=== PATIENT | female | born 1960 | race Caucasian/White ===

== ENCOUNTER 2023-04-16 14:01 | Emergency (ER) | payer BC ==
[2023-04-16 14:07] VITALS: TEMP 98.3; BMI 30.4
[2023-04-16 15:49] LABS: INR 0.98 (0.83-1.09); PROTHROMBIN TIME (PATIENT) 11.4 SEC (9.7-13.0)
[2023-04-16 15:52] LABS: ACTIVATED PTT 25.7 SECONDS (25.2-36.5)
[2023-04-16 16:56] LABS: BASO % 0.6 % (0-2.0); EOS % 0.8 % (0-4.5); HEMATOCRIT 42.4 % (32.4-45.2); HEMOGLOBIN 14.1 GM/dL (10.7-15.3); LYMPH % 21.1 % (8-40); MCH 29.9 pg (25.7-33.7); MCHC 33.4 g/dl (32.0-36.0); MEAN CELL VOLUME 89.7 fl (80-96); MONO % 7.6 % (3.8-10.2); NEUT % 69.9 % (42.8-82.8); PLATELET COUNT 284 10^3/uL (134-434); RBC 4.72 M/mm3 (3.60-5.2); RDW 13.7 % (11.6-15.6); WHITE BLOOD COUNT 7.1 K/mm3 (4.0-10.0)
[2023-04-16 17:01] LABS: POTASSIUM 5.1 mmol/L (3.5-5.1)
[2023-04-16 17:01] LABS: POTASSIUM 4.2 mmol/L (3.5-5.1)
[2023-04-16 17:03] LABS: CALCIUM 9.9 mg/dL (8.5-10.1)
[2023-04-16 17:04] LABS: ALBUMIN 3.8 g/dl (3.4-5.0); BLOOD UREA NITROGEN 12.4 mg/dL (7-18); MAGNESIUM 2.2 mg/dL (1.8-2.4)
[2023-04-16 17:05] LABS: BLOOD UREA NITROGEN 11.6 mg/dL (7-18); CALCIUM 9.6 mg/dL (8.5-10.1)
[2023-04-16 17:06] LABS: ALBUMIN 3.7 g/dl (3.4-5.0)
[2023-04-16 17:07] LABS: CREATININE 0.7 mg/dL (0.55-1.3)
[2023-04-16 17:08] LABS: BILIRUBIN,TOTAL 0.4 mg/dL (0.2-1); TOT PROT 7.8 g/dl (6.4-8.2)
[2023-04-16 17:09] LABS: CREATININE 0.7 mg/dL (0.55-1.3)
[2023-04-16 17:10] LABS: BILIRUBIN,TOTAL 0.3 mg/dL (0.2-1); TOT PROT 7.5 g/dl (6.4-8.2)
[2023-04-16 17:12] LABS: N-TERMINAL BNP 124.7 pg/ml (5-125)
[2023-04-16] MEDS: ACETAMINOPHEN 500 MG TABLET (FP) PO ONE (18:22)
[2023-04-16 21:24] VITALS: BP 128/68; PULSE 80; RESP 16
== END 2023-04-16 21:24 | disposition home or self-care (01) ==
LOC: JER 14:01
DX: R07.9 Chest pain, unspecified (principal); R00.2 Palpitations; Z20.822 Contact with and (suspected) exposure to COVID-19
CPT/HCPCS: 0241U-QW; 36415; 71046-TC-FY; 80053; 83735; 83880; 84484; 85025; 85610; 85730; 93005; 93010; 99285-25